=== PATIENT | male | born 1960 | race Two or more races ===

== ENCOUNTER 2021-09-12 04:11 | Inpatient (IN) | payer MEDICARE, MEDICAID ==
[~2021-09-12] VITALS: Ht 175.3 cm; Wt 66.5 kg
[2021-09-12 04:33] LABS: BASOPHILS % (AUTO) 0.8 % (0.0-2.0); EOSINOPHILS % (AUTO) 5.6 % (1.0-6.0); HEMATOCRIT 22.3 % (41-53); HEMOGLOBIN 7.1 g/dL (13.5-17.5); LYMPHOCYTES # (AUTO) 0.7 K/uL (1.0-4.8); MEAN CORPUSCULAR VOLUME 78 fL (80-100); MONOCYTES # (AUTO) 0.7 K/uL (0.1-1.0); NEUTROPHILS # (AUTO) 4.3 K/uL (1.8-7.7); NEUTROPHILS % (AUTO) 69.6 % (40.0-70.0); PLATELET COUNT (AUTO) 178 K/uL (150-450); RED BLOOD CELL COUNT(AUTO) 2.86 MIL/uL (4.50-5.90); RED CELL DISTRIBUTION WIDTH 19.1 % (11.5-14.5)
[2021-09-12 04:39] LABS: CALCIUM, TOTAL 8.1 mg/dL (8.8-10.5); CREATININE 1.35 mg/dL (0.60-1.30)
[2021-09-12 04:44] LABS: ALBUMIN 2.1 g/dL (3.4-5.0); BILIRUBIN,TOTAL 0.4 mg/dL (0.1-1.0); TOTAL PROTEIN, SERUM 6.2 g/dL (6.4-8.2)
[2021-09-12 04:56] LABS: D-DIMER 2.64 mg/L FEU (0.00-0.50)
[2021-09-12] MEDS ORDERED: ACETAMINOPHEN 325 MG TABLET PO PRN ×2 (05:30)
[2021-09-12] MEDS ORDERED: ONDANSETRON HCL 4 MG/2 ML VIAL IVP PRN ×2 (05:30)
[2021-09-12] MEDS ORDERED: 0.9% SODIUM CHLORIDE 10 ML SYRINGE IVP PRN (05:30)
[2021-09-12] MEDS ORDERED: NITROGLYCERIN 2% (1 GM=INCH) PACKET TP ONE (05:45)
[2021-09-12 05:59] LABS: PROTHROMBIN TIME 10.7 SEC (9.4-11.6)
[2021-09-12 06:29] LABS: COVID AG,FIA SOURCE NASAL SWAB
[2021-09-12 06:59] LABS: % IRON SATURATION 10.9 % (30-44)
[2021-09-12] MEDS ORDERED: DEXTROSE 50%-WATER 25 GM/50 ML SYRINGE IVP PRN (07:30)
[2021-09-12] MEDS: INSULIN GLARGINE,HUM.REC.ANLOG 100 UNITS/ML SQ SCH ×2 (07:31→21:04)
[2021-09-12 07:41] LABS: GLUCOMETER DEV NAME(LOC) ERT.5; GLUCOSE,POINT OF CARE 320 MG/DL (70-110)
[2021-09-12 08:29] VITALS: BP 147/68
[2021-09-12 10:35] LABS: HEMATOCRIT 23.1 % (41-53); HEMOGLOBIN 7.3 g/dL (13.5-17.5)
[2021-09-12 11:18] VITALS: BP 127/75
[2021-09-12] MEDS: METOPROLOL TARTRATE 25 MG TABLET PO SCH ×2 (12:11→21:01)
[2021-09-12] MEDS: ASPIRIN 81 MG CHEWABLE TABLET PO SCH (12:11)
[2021-09-12 15:04] VITALS: BP 128/73
[2021-09-12 15:49] LABS: HEMATOCRIT 24.8 % (41-53); HEMOGLOBIN 7.7 g/dL (13.5-17.5)
[2021-09-12] MEDS: INSULIN LISPRO 100 UNITS/ML SQ PRN ×2 (16:51→21:05)
[2021-09-12 19:35] VITALS: BP 124/67
[2021-09-12] MEDS: MORPHINE SULFATE 2 MG/ML SYRINGE IVP PRN (21:01)
[2021-09-12] MEDS: ATORVASTATIN CALCIUM 20 MG TABLET PO SCH (21:01)
[2021-09-12 21:02] LABS: HEMATOCRIT 25.2 % (41-53); HEMOGLOBIN 7.8 g/dL (13.5-17.5)
[2021-09-13] VITALS (8 sets, daily range): BP systolic 120–143; BP diastolic 70–82
[2021-09-13] MEDS: INSULIN LISPRO 100 UNITS/ML SQ PRN ×4 (06:11→20:19)
[2021-09-13] MEDS: ASPIRIN 81 MG CHEWABLE TABLET PO SCH (09:57)
[2021-09-13] MEDS: METOPROLOL TARTRATE 25 MG TABLET PO SCH ×2 (09:58→20:12)
[2021-09-13] MEDS: MORPHINE SULFATE 2 MG/ML SYRINGE IVP PRN ×3 (09:59→20:13)
[2021-09-13] MEDS: ATORVASTATIN CALCIUM 20 MG TABLET PO SCH (20:12)
[2021-09-13] MEDS: INSULIN GLARGINE,HUM.REC.ANLOG 100 UNITS/ML SQ SCH (20:18)
[2021-09-13] MEDS ORDERED: SODIUM CHLORIDE 0.9% 250 ML IV ONE (22:46)
[2021-09-14] VITALS: BP 119/72
[2021-09-14] MEDS: MORPHINE SULFATE 2 MG/ML SYRINGE IVP PRN ×3 (00:24→10:29)
[2021-09-14 00:30] VITALS: BP 128/72
[2021-09-14 01:00] VITALS: BP 129/74
[2021-09-14 01:30] VITALS: BP 130/74
[2021-09-14 04:16] VITALS: BP 130/74
[2021-09-14] MEDS: INSULIN LISPRO 100 UNITS/ML SQ PRN ×2 (06:14→12:16)
[2021-09-14] MEDS ORDERED: ASPI81 PO (07:28)
[2021-09-14] MEDS ORDERED: INSLAN SQ (07:28)
[2021-09-14] MEDS ORDERED: ATOR20TA65 PO (07:28)
[2021-09-14] MEDS ORDERED: METO25 PO (07:28)
[2021-09-14 07:54] LABS: BASOPHILS % (AUTO) 0.7 % (0.0-2.0); EOSINOPHILS % (AUTO) 6.6 % (1.0-6.0); HEMATOCRIT 27.2 % (41-53); HEMOGLOBIN 8.7 g/dL (13.5-17.5); LYMPHOCYTES # (AUTO) 0.6 K/uL (1.0-4.8); LYMPHOCYTES % (AUTO) 10.5 % (22.0-44.0); MEAN CORPUSCULAR HEMOGLOBIN 25.5 pg (26.0-34.0); MEAN CORPUSCULAR HGB CONC 32.1 G/dL (31.0-37.0); MEAN CORPUSCULAR VOLUME 79 fL (80-100); MONOCYTES # (AUTO) 0.6 K/uL (0.1-1.0); MONOCYTES % (AUTO) 9.8 % (2.0-9.0); NEUTROPHILS # (AUTO) 4.2 K/uL (1.8-7.7); NEUTROPHILS % (AUTO) 72.4 % (40.0-70.0); PLATELET COUNT (AUTO) 178 K/uL (150-450); RED BLOOD CELL COUNT(AUTO) 3.43 MIL/uL (4.50-5.90); RED CELL DISTRIBUTION WIDTH 21.3 % (11.5-14.5)
[2021-09-14] MEDS: ASPIRIN 81 MG CHEWABLE TABLET PO SCH (10:27)
[2021-09-14] MEDS: METOPROLOL TARTRATE 25 MG TABLET PO SCH (10:28)
[2021-09-15 12:53] LABS: GLUCOMETER DEV NAME(LOC) 5S.1B; GLUCOSE,POINT OF CARE 266 MG/DL (70-110)
[2021-09-15 12:53] LABS: GLUCOMETER DEV NAME(LOC) 5S.1B; GLUCOSE,POINT OF CARE 321 MG/DL (70-110)
[2021-09-15 18:00] LABS: GLUCOMETER DEV NAME(LOC) 5N.1C; GLUCOSE,POINT OF CARE 346 MG/DL (70-110)
[2021-09-15 18:00] LABS: GLUCOMETER DEV NAME(LOC) 5S.2B; GLUCOSE,POINT OF CARE 469 MG/DL (70-110)
[2021-09-15 18:01] LABS: GLUCOMETER DEV NAME(LOC) 5S.2B; GLUCOSE,POINT OF CARE 281 MG/DL (70-110)
[2021-09-15 18:01] LABS: GLUCOMETER DEV NAME(LOC) 5N.1C; GLUCOSE,POINT OF CARE 354 MG/DL (70-110)
[2021-09-15 18:01] LABS: GLUCOMETER DEV NAME(LOC) 5N.1C; GLUCOSE,POINT OF CARE 260 MG/DL (70-110)
[2021-09-15 18:02] LABS: GLUCOMETER DEV NAME(LOC) 5N.1C; GLUCOSE,POINT OF CARE 277 MG/DL (70-110)
[2021-09-17 17:26] LABS: GLUCOMETER DEV NAME(LOC) 5S.2B; GLUCOSE,POINT OF CARE 316 MG/DL (70-110)
== END 2021-09-14 16:45 | DRG 313 ==
LOC: EMS 04:11 → 5S 06:04
PROVIDERS: ADMIT Internal Medicine; ATTEND Internal Medicine
PROC: 30233N1 Transfusion of Nonautologous Red Blood Cells into Peripheral Vein, Percutaneous Approach (ICD-10-PCS; principal; 2021-09-13)
DX: R07.89 Other chest pain (principal); E43 Unspecified severe protein-calorie malnutrition; D64.9 Anemia, unspecified; I10 Essential (primary) hypertension; E11.65 Type 2 diabetes mellitus with hyperglycemia; Z66 Do not resuscitate; Z20.822 Contact with and (suspected) exposure to COVID-19; E78.5 Hyperlipidemia, unspecified; Z79.4 Long term (current) use of insulin; Z79.82 Long term (current) use of aspirin; Z85.05 Personal history of malignant neoplasm of liver; Z87.891 Personal history of nicotine dependence; Z95.0 Presence of cardiac pacemaker; Z86.73 Personal history of transient ischemic attack (TIA), and cerebral infarction without residual deficits; Z68.21 Body mass index [BMI] 21.0-21.9, adult
CPT/HCPCS: 71045; 80053; 82962; 83540; 83550; 83880; 84484; 85014; 85018; 85025; 85045; 85379; 85610; 85730; 86850; 86900; 86901; 86923; 93005; 93306; 93970; 99291; G0378; G0480; J1815; J2270; J7050; P9016; 36415-L1; 36415-TC